=== PATIENT | female | born 1975 | race African-American/Black ===

== ENCOUNTER 2016-12-03 18:47 | Emergency (ER) | payer BC, OTHER ==
[~2016-12-03] VITALS: Ht 175.3 cm; Wt 108.0 kg
[~2016-12-03 18:47] MED LIST: NORCO 5-325 TA1 EACH PO
[2016-12-03] MEDS ORDERED: VALIUM5 MG PO (18:58)
[2016-12-03 20:42] VITALS: BP 135/80
== END 2016-12-03 20:42 | disposition home or self-care (01) ==
LOC: ER 18:47
DX: S16.1XXA Strain of muscle, fascia and tendon at neck level, initial encounter (principal); M54.9 Dorsalgia, unspecified; F17.210 Nicotine dependence, cigarettes, uncomplicated; Z90.710 Acquired absence of both cervix and uterus; V49.40XA Driver injured in collision with unspecified motor vehicles in traffic accident, initial encounter; Y93.I9 Activity, other involving external motion; Y92.488 Other paved roadways as the place of occurrence of the external cause; Y99.9 Unspecified external cause status

== ENCOUNTER → 2017-05-12 | Outpatient (CLI) | payer BC, OTHER ==
[~2017-05-12] MED LIST changes: +VALIUM5 MG PO
== END ==
LOC: RAD 13:23
DX: Z12.31 Encounter for screening mammogram for malignant neoplasm of breast (principal)

== ENCOUNTER → 2018-05-18 | Outpatient (CLI) | payer OTHER | LOC: RAD 14:36 | DX: Z12.31 Encounter for screening mammogram for malignant neoplasm of breast (principal) ==

== ENCOUNTER → 2019-05-24 | Outpatient (CLI) | payer OTHER | LOC: RAD 14:11 | DX: Z12.31 Encounter for screening mammogram for malignant neoplasm of breast (principal) ==

== ENCOUNTER → 2020-05-21 | Outpatient (CLI) | payer OTHER | LOC: RAD 15:04 | PROVIDERS: ATTEND Family Medicine | DX: Z12.31 Encounter for screening mammogram for malignant neoplasm of breast (principal) ==

== ENCOUNTER → 2021-06-21 | Outpatient (CLI) | payer OTHER | LOC: RAD 13:54 | PROVIDERS: ATTEND Family Medicine | DX: Z12.31 Encounter for screening mammogram for malignant neoplasm of breast (principal); N64.89 Other specified disorders of breast ==